=== PATIENT | female | born 1950 | race Caucasian/White ===

== ENCOUNTER 2024-05-22 10:06 | Inpatient (IN) | payer MEDICARE, BC, SELFPAY ==
[2024-04-21 13:14] VITALS: BMI 36.7
[2024-04-21 14:10] LABS: Hematocrit 38.2 % (37.0-47.0); Hemoglobin 12.6 g/dL (12.0-16.0); Mean Corpuscular Hgb 30.7 pg (27.0-31.0); Mean Corpuscular Volume 92.9 fL (81.0-99.0); Mean Platelet Volume 10.8 fL (7.4-10.4); Platelet Count 276 10^3/uL (130-400); Red Blood Cell Count 4.11 10^6/uL (4.20-5.40); Red Cell Dist. Width 12.8 % (11.5-14.5); White Blood Cell Count 6.3 10^3/uL (4.8-10.8)
[2024-04-21 14:35] LABS: ALT (SGPT) 32 U/L (0-35); AST (SGOT) 27 U/L (14-36); Albumin 3.9 g/dl (3.5-5.0); Alkaline Phosphatase 107 U/L (38-126); Blood Urea Nitrogen 28 mg/dl (7-17); Calcium 9.4 mg/dl (8.4-10.2); Carbon Dioxide 29 mmol/L (22-30); Chloride 99 mmol/L (98-107); Estimated Creatinine Clearance 45 ml/min; Glucose 90 mg/dl (70-99); Potassium 4.4 mmol/L (3.5-5.1); Sodium 140 mmol/L (135-145); Total Bilirubin 0.5 mg/dl (0.2-1.3); Total Protein 6.7 g/dl (6.3-8.2); eGFR 48.39
[2024-04-22 09:05] LABS: Glycohemoglobin (HgbA1c) 5.5 % (4.0-5.6)
--- NOTE | 2024-05-11 12:49 | VNURNOTE ---
Patient is scheduled for an elective R TKA on 05/22/24- She is a patient with Dr Sanchez. Spoke with patient prior to surgery.
Patient stated she will stay overnight after surgery.
Introduced role of [facility] Liaison. Patient reports that she lives alone in a MULTI story condo.
There are 0 CANDIDA. Patient has a first floor set up.
There is a bathroom, kitchen and bedroom on the entry level account executive. She currently functions independently. She has elevated toilet seats, rails, cane and rolling walker.
She had [facility] services after prior TKR.
PCP is Dr Luanne Mackay.
Discussed post surgical plans.
Patient states she is unable to go to outpt PT, she lives alone and cannot get rides there. Brother is available to assist only after surgery to bring her home.
Patient selects [facility] for home care needs. Outpt PT TBD. Patient stated she was unable to go to SNF after last surgery.
Patient is in agreement with plan. Referral placed in [facility].
Plan: [facility] &PT
[2024-05-16 09:13] VITALS: BMI 36.7
[2024-05-22] VITALS (19 sets, daily range): BP systolic 66–112; BP diastolic 33–70; PULSE 75; O2SAT 97; BMI 36.2
[2024-05-22] MEDS: TYLENOL 650 MG PO ×4 (11:23→23:33)
[2024-05-22] MEDS: CELEBREX 200 MG PO (11:26)
[2024-05-22 11:43] LABS: Glucose - Point of Care 88 mg/dl (70-99)
--- NOTE | 2024-05-22 11:44 | PTCARENOTE ---
Patient states that she does not have anyone to stay with hr post op. Will pass onto the OR team to tell PACU and they can tell the floor nurses. Darius SDS senior site manager made aware. No further orders.
--- NOTE | 2024-05-22 15:03 | W.PN.UPDATE ---
Update Note
Progress Note Update
R knee OA s/p R TKA w/ Dr Sanchez 05/22/24
- s/p R PASTORA, 2019, at an outside facility and L TKA, 04/2023, by Dr Sanchez
DVT prophylaxis - ASA, b/l venous foot pumps
HTN - + parameters - monitor BP
Chronic LBBB and PVCs, asymptomatic - monitor on tele
- Continue BB
NICM and CHF, mrEF - reduce hourly IVF rate to prevent fluid overload
- BP parameters to Lasix to prevent post-surgical hypotension
CKD stage 3 - minimize NSAIDs
NIDDM, A1c 5.9 - monitor BS
- Resume home meds
- + SSI
GERD and chronic nausea secondary to Ozempic - continue PPI therapy
- Zofran and Compazine prn
Chronic constipation - add daily Metamucil to bowel regimen of Colace and Senna
Balance difficulties - on fall precautions
Peripheral neuropathy and sciatica - consider Lyrica (ADR to Gabapentin)
Chronic pain syndrome - monitor pain and adjust meds prn
Obesity, BMI 36.6 - will benefit from prophylactic Cefadroxil
Vertigo
Multilevel DDD
Spinal stenosis
Chronic rhinitis.
Right eye retinal tear, status post repair
Shingles 2017
Insomnia
Anxiety
Depression with remote history of suicidal ideation
[2024-05-22 15:33] LABS: Glucose - Point of Care 87 mg/dl (70-99)
--- NOTE | 2024-05-22 15:47 | SUR.PHASEI ---
Pt adm to PACU awake and alert, BBS clear, BP low CUSTOMER DATA TECHNICIAN at bedside, gave 1 dose Edison, Other VSS, Bp coming up after Edison. Pt states minimal knee pain, tolerable at this time
--- NOTE | 2024-05-22 15:55 | SUR.PHASEI ---
Received report from Leanne Silveira RN and assumed care of pt.
--- NOTE | 2024-05-22 16:57 | PTCARENOTE ---
pt received from PACU in a bed. pt is AAOx3 and in little pain. once in room, pt was oriented to room, then evaluated by PT.
[2024-05-22] MEDS: ZESTRIL 5 MG PO (17:27)
[2024-05-22] MEDS: FARXIGA 10 MG PO (17:27)
[2024-05-22] MEDS: ASPIRIN 325 MG PO (17:27)
[2024-05-22] MEDS: LIDOCAINE 4% PATCH 2 PATCH TOPICAL (17:28)
[2024-05-22] MEDS: LASIX 20 MG PO (17:28)
[2024-05-22] MEDS: PROTONIX 40 MG PO (17:28)
[2024-05-22] MEDS: NSS 1000 IV (17:29)
[2024-05-22] MEDS: ANCEF 5 IV (20:36)
[2024-05-22] MEDS: BACTROBAN 2% OINTMENT 1 APPLIC NASAL (20:36)
[2024-05-22] MEDS: SENOKOT 17.2 MG PO (20:38)
[2024-05-22] MEDS: COLACE 100 MG PO (20:38)
[2024-05-22] MEDS: COREG 3.125 MG PO (20:39)
[2024-05-22 21:16] LABS: Glucose - Point of Care 189 mg/dl (70-99)
[2024-05-22] MEDS: CLARITIN 20 MG PO (22:20)
[2024-05-22] MEDS: ROXICODONE 5 MG PO (22:25)
[2024-05-23] MEDS: TYLENOL 650 MG PO ×3 (03:18→11:57)
[2024-05-23 04:00] VITALS: BP 93/58
[2024-05-23] MEDS: ANCEF 5 IV (04:20)
[2024-05-23 04:34] VITALS: BMI 37.2
[2024-05-23 07:00] VITALS: BP 98/89
[2024-05-23 07:08] LABS: Glucose - Point of Care 127 mg/dl (70-99)
[2024-05-23] MEDS: BACTROBAN 2% OINTMENT 1 APPLIC NASAL (08:07)
[2024-05-23] MEDS: ASPIRIN 325 MG PO (08:07)
[2024-05-23] MEDS: PROTONIX 40 MG PO (08:08)
[2024-05-23] MEDS: FARXIGA 10 MG PO (08:08)
[2024-05-23] MEDS: METAMUCIL, KONSYL 1 PACKET PO (08:08)
[2024-05-23] MEDS: SENOKOT 17.2 MG PO (08:09)
[2024-05-23] MEDS: LIDOCAINE 4% PATCH 2 PATCH TOPICAL (08:09)
[2024-05-23] MEDS: LASIX PO (08:10)
[2024-05-23] MEDS: ZESTRIL PO (08:10)
[2024-05-23] MEDS: COREG PO (08:10)
[2024-05-23] MEDS: COLACE 100 MG PO (08:10)
[2024-05-23] MEDS: ROXICODONE 5 MG PO ×2 (08:11→11:57)
[2024-05-23 09:40] VITALS: BP 111/75; BP 122/64; BP 92/54; PULSE 67; PULSE 84; O2SAT 96
[2024-05-23 10:12] VITALS: BP 98/63; PULSE 81; O2SAT 96
--- NOTE | 2024-05-23 10:40 | W.PN.ORTHO ---
Today's Communication / Plan
-
D/c today since clinically stable, did well w/ PT and OT.
Assessment
.
Distal Motor Intact: Yes
Dressing:
Small areas of old bleeding along incision line.
Assessment:
R knee OA s/p R TKA w/ Dr Sanchez 05/22/24
- s/p R PASTORA, 2019, at an outside facility and L TKA, 04/2023, by Dr Sanchez
DVT prophylaxis - ASA, b/l venous foot pumps
HTN - + parameters - BPs borderline low but pt remaining asymptomatic
- Will continue BP parameters to Lasix, Lisinopril, and Spironolactone while on Oxycodone
Chronic LBBB and PVCs, asymptomatic - rhythm stable on tele
- Continue BB
NICM and CHF, mrEF - reduced hourly IVF rate to prevent fluid overload
- BP parameters to Lasix/Spironolactone to prevent post-surgical hypotension
CKD stage 3 - pt asking when she can restart Ibuprofen as 'only med that works' - will advise she only use this for breakthrough pain prn and be on it as short as time as possible
NIDDM, A1c 5.9 - BS readings stable w/ resumption of home meds, SSI AC while inpatient
GERD and chronic nausea secondary to Ozempic - continue PPI therapy
- Zofran and Compazine prn
Chronic constipation - per pt preference, will do daily Metamucil and Colace prn
Balance difficulties - on fall precautions
Peripheral neuropathy and sciatica - consider Lyrica (ADR to Gabapentin)
Chronic pain syndrome - pain reportedly well tolerated by POD 1
Obesity, BMI 36.6 - will benefit from prophylactic Cefadroxil
Vertigo
Multilevel DDD
Spinal stenosis
Chronic rhinitis.
Right eye retinal tear, status post repair
Shingles 2017
Insomnia
Anxiety
Depression with remote history of suicidal ideation
Plan
.
Surgery / Date: R TKA w/ Dr Sanchez 05/23/24
DVT Prophylaxis: Aspirin
Activity:
Out of bed.
PT/OT
Discharge Plan: Home w/ VN
Subjective
.
.:
Patient resting comfortably in her chair.
Borderline low BPs but asymptomatic throughout therapy.
Denies any new significant complaints.
Eager for potential d/c today.
Vital Signs and Labs
.
Vital Signs and Labs:
Lab Results
04/21/24 12:53
04/21/24 12:53
Temp Pulse Resp BP Pulse Ox
98 F 82 16 98/59 94
05/23/24 07:00 05/23/24 07:00 05/23/24 07:00 05/23/24 08:10 05/23/24 07:00
Physical Exam
-
HEENT: No pallor, cyanosis, or jaundice. Throat clear.
NECK: Supple. No JVD.
RESPIRATORY: Lungs clear to auscultation.
CVS: S1, S2 normal. RRR w/ occasional ectopy.
ABDOMEN: Soft, non-tender. No distension. Obese.
EXTREMITIES: Expected post-surgical R knee edema. Strength equal, no calf pain with palpation/dorsiflexion. Calves soft.
SMOKE AND FLAME SPECIALIST: AOx3. No focal deficits. supervisor plastering grossly intact
--- NOTE | 2024-05-23 10:58 | W.DS.TRANS ---
DC Summary - [employer]
-
Discharge Instructions:
Sleep Apnea Risk Intermediate
Discharge Diagnosis/Procedures R knee OA s/p R TKA w/ Dr Sanchez 05/22/24
Diet Diabetic, Carb Controlled
Activity As tolerated,With Walker
Driving Restrictions Not until seen by your Dr
Bathing Restrictions OK to Shower
Other Services V[facility],PT
Wound Care Dressing to be removed 1 week post-surgery
Specialty Instructions Weigh Daily
Instructions:
Stand-Alone Forms: Total Hip/Knee Replacement D/C
Changes to Home Medications: Yes
Discharge Medications:
DC Medications w/original date entered in [facility]
fluticasone propionate 50 mcg/actuation nasal spray,suspension 1 spray intranasal BID Allergies 10/21/20
loratadine 10 mg tablet 20 mg PO HS Allergies 10/21/20
carvedilol 3.125 mg tablet 3.125 mg PO BID #60 tabs 10/24/20
empagliflozin 10 mg tablet (Jardiance) 10 mg PO DAILY Diabetes 04/14/23
multivitamin 1 tab PO DAILY Supplement 04/14/23
omeprazole 10 mg capsule,delayed release 20 mg PO DAILY Gastrointestinal Issue 04/14/23
mupirocin 2 % topical ointment 1 applic topical BID 05/16/24
psyllium seed (sugar) oral powder (Metamucil (sugar) oral powder) 1 tbsp PO DAILY 05/16/24
semaglutide 2 mg/dose (8 mg/3 mL) subcutaneous pen injector (Ozempic) 2 mg SC QWEEK 05/16/24
Saccharomyces boulardii 250 mg capsule (Florastor) 250 mg PO BID #14 caps 05/23/24
acetaminophen 500 mg tablet (Tylenol Extra Strength) 1,000 mg (2 x 500 mg) PO Q6H #60 tabs 05/23/24
aspirin 325 mg tablet 325 mg PO DAILY #30 tabs 05/23/24
cefadroxil 500 mg capsule 500 mg PO BID #14 caps 05/23/24
docusate sodium 100 mg capsule 100 mg PO BID PRN constipation #30 caps 05/23/24
furosemide 20 mg tablet 20 mg PO DAILY Fluid Retention/Swelling #0 tabs 05/23/24
ibuprofen 200 mg tablet 400 mg (2 x 200 mg) PO BID PRN breakthrough pain #40 tabs 05/23/24
lidocaine 4 % topical patch 2 patch topical DAILY #30 ea 05/23/24
lisinopril 5 mg tablet 5 mg PO DAILY Blood Pressure #0 tabs 05/23/24
ondansetron HCl 4 mg tablet 4 mg PO Q6H PRN nausea and vomiting #30 tabs 05/23/24
oxycodone 5 mg tablet 5 - 10 mg (1 - 2 x 5 mg) PO Q6H PRN moderate-severe pain #30 tabs 05/23/24
spironolactone 25 mg tablet 12.5 mg (1/2 x 25 mg) PO DAILY #30 tabs 05/23/24
Home Medication Changes
Saccharomyces boulardii 250 mg capsule (Florastor) 250 mg PO BID #14 caps 05/23/24
acetaminophen 500 mg tablet (Tylenol Extra Strength) 1,000 mg (2 x 500 mg) PO Q6H #60 tabs 05/23/24
aspirin 325 mg tablet 325 mg PO DAILY #30 tabs 05/23/24
cefadroxil 500 mg capsule 500 mg PO BID #14 caps 05/23/24
docusate sodium 100 mg capsule 100 mg PO BID PRN constipation #30 caps 05/23/24
ibuprofen 200 mg tablet 400 mg (2 x 200 mg) PO BID PRN breakthrough pain #40 tabs 05/23/24
lidocaine 4 % topical patch 2 patch topical DAILY #30 ea 05/23/24
ondansetron HCl 4 mg tablet 4 mg PO Q6H PRN nausea and vomiting #30 tabs 05/23/24
oxycodone 5 mg tablet 5 - 10 mg (1 - 2 x 5 mg) PO Q6H PRN moderate-severe pain #30 tabs 05/23/24
Pending Results: No
[2024-05-23 11:44] VITALS: BP 94/54
[2024-05-23 12:14] LABS: Glucose - Point of Care 120 mg/dl (70-99)
--- NOTE | 2024-05-23 12:15 | CM ---
Met with pt at bedside
Pt reports she lives alone in a 1 story condo, within a [place] community; no steps to enter
Independent with ADL's, drives. Needs assist with HH chores. Little family support
DME - raised toiler seat, shower chair, rolling walker, single point cane, shower rails, toilet rails
SNF - [facility] in past for rehab
HH - [facility] in past
Has ride home - brother
PCP - Luanne Farnsworth
Pharm - [facility]
Plan is for HH - RN/PT. Pt requesting [facility]
TT sent to [facility] Liaison
Pt reports her brother will assist with shopping and transport as needed
Discussed IMM
Plan - home with [facility]
== END 2024-05-23 13:57 | disposition home health service (06) | DRG 470 ==
LOC: 2 SOUTH 10:06
PROVIDERS: ADMITTING PHYSICIAN Specialist; FAMILY PHYSICIAN Student in an Organized Health Care Education/Training Program
PROC: 0SRC0J9 Replacement of Right Knee Joint with Synthetic Substitute, Cemented, Open Approach (ICD-10-PCS; 2024-05-22)
DX: M17.11 Unilateral primary osteoarthritis, right knee (principal); I42.8 Other cardiomyopathies; I13.0 Hypertensive heart and chronic kidney disease with heart failure and stage 1 through stage 4 chronic kidney disease, or unspecified chronic kidney disease; I50.20 Unspecified systolic (congestive) heart failure; E11.22 Type 2 diabetes mellitus with diabetic chronic kidney disease; E11.42 Type 2 diabetes mellitus with diabetic polyneuropathy; N18.31 Chronic kidney disease, stage 3a; G89.4 Chronic pain syndrome; F32.A Depression, unspecified; K21.9 Gastro-esophageal reflux disease without esophagitis; K59.09 Other constipation; E66.9 Obesity, unspecified; Z68.37 Body mass index [BMI] 37.0-37.9, adult; Z79.82 Long term (current) use of aspirin; Z79.84 Long term (current) use of oral hypoglycemic drugs; Z88.8 Allergy status to other drugs, medicaments and biological substances; Z96.641 Presence of right artificial hip joint; Z96.652 Presence of left artificial knee joint; Z79.891 Long term (current) use of opiate analgesic
CPT/HCPCS: 36415; 73560; 80053; 82962; 83036; 85027; 87070; 97110; 97116; 97161; 97166; 97530; 97535; C1713; C1776

== ENCOUNTER → 2024-07-26 11:57 | Outpatient (REF) | payer MEDICARE, BC, SELFPAY ==
[2024-07-26 14:26] LABS: % Basophils 0.6 % (0-2); % Eosinophils 2.4 % (0-6); % Immature Granulocytes 0.3 % (0-0.5); % Monocytes 5.2 % (1.7-9.3); % Neutrophils 67.5 % (42.2-75.2); Absolute Eosinophils 0.2 10^3/uL (0-0.7); Absolute Lymphocytes 1.6 10^3/uL (1.2-3.4); Absolute Monocytes 0.3 10^3/uL (0.1-0.6); Absolute Neutrophils 4.4 10^3/uL (1.4-6.5); Hematocrit 42.2 % (37.0-47.0); Hemoglobin 13.6 g/dL (12.0-16.0); Mean Corp Hgb Conc. 32.2 g/dL (33.0-37.0); Mean Corpuscular Hgb 29.9 pg (27.0-31.0); Mean Corpuscular Volume 92.7 fL (81.0-99.0); Mean Platelet Volume 9.7 fL (7.4-10.4); Nucleated Red Blood Cells % 0 %; Platelet Count 296 10^3/uL (130-400); Red Blood Cell Count 4.55 10^6/uL (4.20-5.40); Red Cell Dist. Width 13.5 % (11.5-14.5); White Blood Cell Count 6.6 10^3/uL (4.8-10.8)
[2024-07-26 15:01] LABS: Erythrocyte Sed Rate 11 mm/hour (0-20)
[2024-07-26 15:35] LABS: C-Reactive Protein < 5.00 mg/L (0.0-10.00)
[2024-07-26 15:45] LABS: ALT (SGPT) 14 U/L (0-35); AST (SGOT) 20 U/L (14-36); Albumin 4.3 g/dl (3.5-5.0); Alkaline Phosphatase 101 U/L (38-126); Blood Urea Nitrogen 27 mg/dl (7-17); Calcium 9.5 mg/dl (8.4-10.2); Carbon Dioxide 31 mmol/L (22-30); Chloride 98 mmol/L (98-107); Glucose 97 mg/dl (70-99); Potassium 4.5 mmol/L (3.5-5.1); Sodium 137 mmol/L (135-145); Total Bilirubin 0.3 mg/dl (0.2-1.3); eGFR 43.96
[2024-07-27 08:32] LABS: Glycohemoglobin (HgbA1c) 5.4 % (4.0-5.6)
== END ==
LOC: REG 11:57
PROVIDERS: ATTENDING PHYSICIAN Student in an Organized Health Care Education/Training Program
DX: R11.2 Nausea with vomiting, unspecified (principal); Z96.651 Presence of right artificial knee joint; E11.8 Type 2 diabetes mellitus with unspecified complications; N18.31 Chronic kidney disease, stage 3a
CPT/HCPCS: 36415; 74018; 80053; 83036; 85025; 85652; 86140

== ENCOUNTER → 2024-08-01 09:12 | Outpatient (REF) | payer MEDICARE, BC, SELFPAY | LOC: HWRCS 09:12 | PROVIDERS: ATTENDING PHYSICIAN Student in an Organized Health Care Education/Training Program; FAMILY PHYSICIAN Student in an Organized Health Care Education/Training Program | DX: I42.8 Other cardiomyopathies (principal) | CPT/HCPCS: 93306 ==

== ENCOUNTER → 2024-08-14 16:09 | Outpatient (REF) | payer MEDICARE, BC, SELFPAY | LOC: RAD 16:09 | PROVIDERS: ATTENDING PHYSICIAN Internal Medicine | DX: R05.1 Acute cough (principal) | CPT/HCPCS: 71046 ==